=== PATIENT | male | born 1995 | race Caucasian/White ===

== ENCOUNTER 2018-07-19 23:17 | Emergency (ER) | payer SELFPAY ==
[~2018-07-19] VITALS: Ht 188 cm; Wt 81.6 kg
[2018-07-19 23:40] VITALS: BP_SYST 113
[2018-07-20 00:15] VITALS: BP_SYST 113
== END 2018-07-20 00:15 ==
LOC: SED 23:17
DX: M79.641 Pain in right hand (principal); F17.210 Nicotine dependence, cigarettes, uncomplicated
CPT/HCPCS: 99283